=== PATIENT | female | born 1965 | race African-American/Black ===

== ENCOUNTER → 2017-05-24 | Outpatient (CLI) | payer OTHER ==
[~2017-05-24] MED LIST: ABILIFY PO; ALBUTEROL S2 MG/5 ML PO; ALBUTEROL17 GM INH; ASPIRIN81 MG PO; ATENOLOL PO; ATENOLOL50 MG PO; BECONASE-AQ25 ML INH; CLARITIN10 M2 PO; CLARITIN10 M3 PO; CLARITIN10 MG PO; COMBIVENT MININEB; CYMBALTA; CYMBALTA PO; DESYREL100 MG PO; FLAGYL PO; GEODON80 MG PO; HYDROCODON-ACE1 EAC4 PO; LEVOTHROID75 MCG PO; LEVOTHYROXINE100 MCG PO; LEVOTHYROXINE88 MCG PO; LIPITOR20 MG PO; LISINOPRIL PO; LISINOPRIL-HCTZ1 T14 PO; LORTAB 7.5-5001 TAB PO; MOTRIN600 M1 PO; MOTRIN600 M2 PO; NASAL SPRAY OTC; OMEPRAZOLE10 M1 PO; OMEPRAZOLE20 M2 PO; PAIN RELIEF650 MG PO; PHENERGAN PO; ROPINIROLE HCL0.5 MG PO; SEROQUEL; TENORMIN25 MG PO; TRAZODONE HCL100 MG PO; TRAZODONE PO; ULTRAM PO; VITAMIN D1000 UNI1 PO; VITAMIN D1000 UNI2 PO; [UNRECOGNIZED DRUG - OTHER]
== END | disposition home or self-care (01) ==
LOC: CLAB 08:11
DX: E89.0 Postprocedural hypothyroidism (principal)
CPT/HCPCS: 36415; 84443